=== PATIENT | male | born 1980 | race Caucasian/White ===

== ENCOUNTER → 2023-10-29 13:34 | Outpatient (REF) | payer OTHER, SELFPAY | LOC: RAD 13:34 | PROVIDERS: ATTENDING PHYSICIAN Nurse Practitioner Family; FAMILY PHYSICIAN Internal Medicine | DX: R05.3 Chronic cough (principal) | CPT/HCPCS: 71046 ==

== ENCOUNTER → 2024-01-20 16:13 | Outpatient (REF) | payer OTHER, SELFPAY | LOC: RCS 16:13 | PROVIDERS: ATTENDING PHYSICIAN Nurse Practitioner Family | DX: R05.1 Acute cough (principal); R50.9 Fever, unspecified; R07.9 Chest pain, unspecified | CPT/HCPCS: 71046; 93005 ==